=== PATIENT | male | born 1960 | race Asian ===

== ENCOUNTER → 2020-03-24 10:48 | Outpatient (CLI) | payer OTHER, SELFPAY ==
[2020-03-25 08:58] LABS: COVID19 Sendout Not Detected (Not Detect)
== END ==
PROVIDERS: Visit Provider Physician Assistant
DX: Z11.59 Encounter for screening for other viral diseases (principal)
CPT/HCPCS: 87635

== ENCOUNTER → 2021-01-25 19:44 | Outpatient (CLI) | payer OTHER, SELFPAY ==
[2021-01-25 20:08] LABS: COVID19 -Nasal RAPID Negative (Negative)
== END ==
PROVIDERS: Visit Provider Physician Assistant
DX: Z20.822 Contact with and (suspected) exposure to COVID-19 (principal)
CPT/HCPCS: 87635

== ENCOUNTER → 2021-07-03 10:39 | Outpatient (CLI) | payer OTHER, SELFPAY ==
[2021-07-03 11:33] LABS: COVID19 -Nasal RAPID Negative (Negative)
== END ==
PROVIDERS: Visit Provider Nurse Practitioner Critical Care Medicine
DX: Z20.822 Contact with and (suspected) exposure to COVID-19 (principal)
CPT/HCPCS: 87635